=== PATIENT | female | born 1940 | race Caucasian/White ===

== ENCOUNTER → 2018-01-09 | Outpatient (CLI) | payer MEDICARE, MEDICAID ==
[2015-01-01 11:02] VITALS: BMI 32.8
[~2018-01-09] MED LIST: ACY200 PO; ATOR40TA24 PO; Acetaminophen PO; Aspirin PO; CARB15DR72 OP; DOCU-416 PO; ETOD200C26 PO; HYDC1T TOP; HYDR-318 PO; HYDR1TAB PO; LACT1CAP9 PO; LOR1 PO; LORA-1456 PO; MET500 PO; METH-280 PO; MON10 PO; NAPR220C12 PO; OLME5TAB8 PO; OXYC-823 PO; PANT40TA65 PO; PER PO; TRIA63AE TOP
--- NOTE | 2018-01-10 10:25 | RADIOLOGY IMAGING REPORT ---
FACILITY: [facility] [place] PATIENT NAME: VALENTINA JIANG : [id number] MR: [id number] V: [id number] EXAM DATE: [id number] ORDERING PHYSICIAN: GISSEL MASON TECHNOLOGIST: Anna Dunn PROCEDURE:US RIGHT BREAST COMPLETE COMPARISON:None. INDICATIONS:POSSIBLE LUMP 4 O'CLOCK POSITION THE RIGHT BREAST AND RIGHT RETROAREOLAR TENDERNESS. FINDINGS: There is a 3mm cyst in the 12 o'clock position of the Right breast 4cm from the nipple. No other sonographic abnormality was identified throughout the Right breast therefore clinical follow-up is recommended for patient's clinical finding. DIAGNOSTIC CATEGORY 2--BENIGN FINDING. RECOMMENDATIONS: ROUTINE MAMMOGRAM AND CLINICAL EVALUATION. CLINICAL EVALUATION. IMPRESSION: BIRADS 2: Benign finding No mammographic or sonographic abnormalities identified to account for patient's clinical finding therefore clinical finding recommended. Dictated by: Teodora Lobato M.D. on 01/09/2018 at 16:16 Transcribed by: PAOLA on 01/10/2018 at 8:20 Approved by: Teodora Lobato M.D. on 01/10/2018 at 10:23 [facility]
--- NOTE | 2018-01-10 10:25 | RADIOLOGY IMAGING REPORT ---
FACILITY: [facility] PATIENT NAME: VALENTINA JIANG : [id number] MR: [id number] V: [id number] EXAM DATE: [id number] ORDERING PHYSICIAN: GISSEL MASON TECHNOLOGIST: Fatou Urbano PROCEDURE:BILATERAL DIAGNOSTIC DIGITAL MAMMOGRAM WITH CAD ASSISTED INTERPRETATION & 3D TOMOSYNTHESIS COMPARISON:Prior mammograms 08/29/17, 03/01/17, 06/09/15, 05/20/14, 05/04/13. INDICATIONS:POSSIBLE LUMP 4 O'CLOCK POSITION OF THE RIGHT BREAST AND RIGHT RETROAREOLAR TENDERNESS. FINDINGS: Small amount of fibroglandular tissue is seen throughout the breasts. The parenchymal pattern has remained stable allowing for difference in mammographic technique & patient positioning. There is no evidence of malignant appearing mass, malignant appearing calcifications or other secondary sign of malignancy in either breast. Today's Right breast Ultrasound demonstrated a tiny 3mm cyst in the 12 o'clock position of the Right breast. DIAGNOSTIC CATEGORY 2--BENIGN FINDING. RECOMMENDATIONS: ROUTINE MAMMOGRAM AND CLINICAL EVALUATION. CLINICAL EVALUATION. IMPRESSION: BIRADS 2: Benign finding No significant mammographic abnormality identified. A 3mm cyst in the 12 o'clock position of the Right breast was demonstrated sonographically likely accounting for patient's findings. Therefore clincial follow-up recommended. Dictated by: Teodora Lobato M.D. on 01/09/2018 at 16:15 Transcribed by: PAOLA on 01/10/2018 at 8:13 Approved by: Teodora Lobato M.D. on 01/10/2018 at 10:23 [facility]
== END ==
LOC: MAMO 01:01
PROVIDERS: ATTEND Family Medicine
DX: N60.01 Solitary cyst of right breast (principal)
CPT/HCPCS: 77062; 77066

== ENCOUNTER → 2018-07-22 | Outpatient (CLI) | payer MEDICARE, MEDICAID ==
[2015-01-01 11:02] VITALS: BMI 32.8
--- NOTE | 2018-07-22 11:51 | RADIOLOGY IMAGING REPORT ---
FACILITY: [facility] - [place] PATIENT NAME: Juju Sigala : 1940 MR: [id number] V: [id number] EXAM DATE: ORDERING PHYSICIAN: ERIKA TEMPLE TECHNOLOGIST: Location: [facility] [place] Patient: Juju Sigala : 1940 Visit/Account:[id number] Date of Sevice: 07/22/2018 HIP RIGHT History: Right hip pain for many years. Comparison study: None. Findings: There is no fracture involving the pelvis or hip. There are minimal findings of joint spa ce narrowing involving the hips bilaterally; right side greater than left. There are prominent findings of bony erosion and subchondral sclerosis involve the sacroiliac joints bilaterally; right side greater than left. This is likely the cause of the patient's right-sided dagmar n. Entities such as inflammatory bowel disease or seropositive inflammatory arthropathy may be a con sideration. Note there are surgical clips related to bowel surgery in the pelvis and in the region of the rectum. IMPRESSION: 1. In this patient with right hip pain there are mild findings of joint space narrowing involving hi ps bilaterally, but there are prominent findings of bony erosions and subchondral sclerosis involving the right sacroiliac joint. Less prominent findings are noted on the left side in the sacroiliac cassidy int. In this patient with a history of bowel surgery the possibility of inflammatory arthritis relat ed to inflammatory bowel disease is raised. Report Dictated By: Wyatt Dee MD at 07/22/2018 11:44 AM Report E-Signed By: Wyatt Dee MD at 07/22/2018 11:47 AM WSN:JOSE ANGEL
== END ==
LOC: RAD 10:36
PROVIDERS: ATTEND Family Medicine
DX: M85.40 Solitary bone cyst, unspecified site (principal)

== ENCOUNTER 2018-08-06 17:26 | Emergency (ER) | payer MEDICARE, MEDICAID ==
[2015-01-01 11:02] VITALS: Wt 68.0 kg
[~2018-08-06 17:26] MED LIST changes: -DOXY-179 PO; -SCOP1PAT16 TD
--- NOTE | 2018-08-06 17:46 | ER Report ---
History and Physical Time Seen By MD: 17:46 Hx. of Stated Complaint: PATIENT REPORTS THAT SHE HAS HAD INCREASED DIZZINESS SINCE SATURDAY. SHE REPORTS THAT SHE GOT UP TO USE RESTROOM TODAY AROUND 1500 AND WAS VERY UNSTEADY ON HER FEET HPI/ROS CHIEF COMPLAINT: Dizziness HISTORY OF PRESENT ILLNESS: 78-year-old female patient presents to emergency room with complaint of dizziness. Patient states that she had been having some intermittent dizziness over the last couple days. She states it seemed to worsen yesterday afternoon. She states she got up to the bathroom at 3:00 and felt very unsteady. She states she did not fall. She states that she did take some lorazepam which seemed to help. She states she takes that for a facial tic. She states that she's noticed that she tends to have the facial take more when she is dizzy. Patient states that seems to be that she is more dizzy when she is up moving around. She denies any nausea, vomiting or diarrhea. Patient states that she has had some mild episodes like this in the past but nothing more recent. REVIEW OF SYSTEMS: Respiratory: No cough, no dyspnea. Cardiovascular: No chest pain, no palpitations. Gastrointestinal: No vomiting, no abdominal pain. Musculoskeletal: No back pain. Allergies: Coded Allergies: Penicillins (Verified Allergy, Severe, SHEDDING OF SKIN ON HANDS, ARRYTHIMA, 12/22/14) ramipril (Verified Allergy, Intermediate, Coughing, 12/22/14) morphine (Verified Adverse Reaction, Severe, NAUSEA/ VIOLENT VOMITING, 12/22/14) Procaine HCl (Verified Adverse Reaction, Intermediate, DIZZINESS-DISORIENTED, 12/22/14) celecoxib (Verified Adverse Reaction, Intermediate, DIZZINESS, 12/22/14) omeprazole (Verified Adverse Reaction, Intermediate, DIZZINESS, 12/22/14) omeprazole magnesium (Verified Adverse Reaction, Intermediate, DIZZINESS, 12/22/14) sertraline HCl (Verified Adverse Reaction, Intermediate, DIZZINESS, 12/22/14) simvastatin (Verified Adverse Reaction, Intermediate, DIZZINESS, 12/22/14) Home Meds Active Scripts Doxycycline Hyclate (DOXYCYCLINE HYCLATE) 100 Mg Tablet, 100 MG PO BID, #14 TAB Prov:ANNALISE ENGLISH 08/06/18 Scopolamine (Scopolamine) 1 Mg/3 Day Patch.td.3, 1 PATCH TD Q3D PRN for DIZZINESS, #3 PATCH Prov:ANNALISE ENGLISH 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 08/06/18 [Aspirin] 325 MG TAB No Conflict Check, 325 MG PO QDAY, TAB Prov:BRANDIN HIGGINBOTHAM MD 01/05/15 [Acetaminophen] 325 MG TAB No Conflict Check, 650 MG PO Q4H PRN for PAIN, TAB Prov:BRANDIN HIGGINBOTHAM MD 01/05/15 Reported Medications Naproxen Sodium (ALEVE) 220 Mg Capsule, 440 MG PO BID, CAPSULE with food 01/06/15 Hydrocodone/Acetaminophen (Lortab 7.5-325 mg Tablet) 1 Each Tablet, 1-2 TAB PO Q4-6H PRN for PAIN, #100 01/06/15 Oxycodone Hcl (OXYCONTIN) 10 Mg Tab.er.12h, 10 MG PO Q12H for PAIN, #20 01/06/15 Lorazepam (LORAZEPAM) 1 Mg Tab, 1 MG PO PRN for Anxiety, TAB 12/27/14 Lorazepam (ATIVAN) 1 Mg Tablet, 1 MG PO PRN PRN for FACIAL SPASMS 12/22/14 Pantoprazole Sodium (PANTOPRAZOLE SODIUM) 40 Mg Tablet.dr, 40 MG PO QDAY, TAB.SR 02/16/14 Carboxymethylcellulose Sodium (Refresh Tears) 15 Ml Drops, 15 ML OP PRN PRN for DRY EYES AT NIGHT 03/12/13 Metformin Hcl (Glucophage) 500 Mg Tab, 500 MG PO BID 03/12/13 Acyclovir (Zovirax) 200 Mg Cap, 200 MG PO QAM 03/12/13 Atorvastatin Calcium (Lipitor) 40 Mg Tablet, 40 MG PO QAM 03/12/13 Olmesartan Medoxomil 5 MG TAB (Benicar 5 MG TAB) 5 Mg Tablet, 5 MG PO QAM 03/12/13 Past Medical/Surgical History Patient has a past medical history of migraines, CVA, facial spasms, arrhythmia, hypertension, hyperlipidemia, tuberculosis exposure, IBS, reflux, mild incontinence, left wrist fracture, chronic back pain, herpes, type 2 diabetes, skin cancer. Patient has surgical history of tonsillectomy, hammertoe surgery bilaterally, hysterectomy, umbilical hernia repair, appendectomy. Patient has a family medical history of cancer, CAD, diabetes. Reviewed Nurses Notes: Yes Hx Smoking: No Smoking Status: Never Smoker Exposure to Second Hand Smoke?: No Hx Substance Use Disorder: No Hx Alcohol Use: No Constitutional Vital Sign - Last 24 Hours 08/06/18 08/06/18 08/06/18 08/06/18 17:29 17:30 17:41 17:56 Temp 98.5 Pulse 85 86 82 Resp 20 23 15 B/P (MAP) 167/66 167/66 (99) Pulse Ox 92 92 O2 Delivery Room Air 08/06/18 08/06/18 08/06/18 08/06/18 18:00 18:26 18:36 18:41 Pulse 79 80 77 76 82 Resp 27 20 B/P (MAP) 125/108 (114) 140/73 (95) 145/93 (110) 155/105 (122) Pulse Ox 92 08/06/18 08/06/18 08/06/18 18:46 19:16 19:21 Pulse 79 80 84 Resp 20 Pulse Ox 90 94 89 Physical Exam General Appearance: The patient is alert, has no immediate need for airway pro tection and no current signs of toxicity. Respiratory: Chest is non tender, lungs are clear to auscultation. Cardiac: regular rate and rhythm Gastrointestinal: Abdomen is soft and non tender, no masses, bowel sounds normal. Musculoskeletal: Neck: Neck is supple and non tender. Extremities have full range of motion and are non tender. Skin: No rashes or lesions. DIFFERENTIAL DIAGNOSIS: After history and physical exam differential diagnosis was considered for dizziness including but not limited to peripheral and central causes of vertigo, orthostatic causes including dehydration, and blood loss. Medical Decision Making Data Points Result Diagram: 08/06/18 1743 08/06/18 1743 Laboratory Hematology Test 08/06/18 17:43 08/06/18 19:05 Red Blood Count 5.06 M/uL (4.17-5.56) Mean Corpuscular Volume 94.4 fL (80.0-96.0) Mean Corpuscular Hemoglobin 31.6 pg (26.0-33.0) Mean Corpuscular Hemoglobin Concent 33.5 g/dL (32.0-36.0) Red Cell Distribution Width 13.8 % (11.5-14.5) Mean Platelet Volume 8.0 fL (7.2-11.1) Neutrophils (%) (Auto) 68.5 % (39.4-72.5) Lymphocytes (%) (Auto) 19.4 % (17.6-49.6) Monocytes (%) (Auto) 8.9 % (4.1-12.4) Eosinophils (%) (Auto) 2.8 % (0.4-6.7) Basophils (%) (Auto) 0.4 % (0.3-1.4) Nucleated RBC Relative Count (auto) 0.1 /100WBC Neutrophils # (Auto) 5.1 K/uL (2.0-7.4) Lymphocytes # (Auto) 1.4 K/uL (1.3-3.6) Monocytes # (Auto) 0.7 K/uL (0.3-1.0) Eosinophils # (Auto) 0.2 K/uL (0.0-0.5) Basophils # (Auto) 0.0 K/uL (0.0-0.1) Nucleated RBC Absolute Count (auto) 0.01 K/uL Sodium Level 134 mmol/L (137-145) Potassium Level 4.1 mmol/L (3.5-5.0) Chloride Level 97 mmol/L (98-107) Carbon Dioxide Level 29 mmol/L (22-31) Blood Urea Nitrogen 16 mg/dl (7-18) Creatinine 0.90 mg/dl (0.52-1.04) Glomerular Filtration Rate Calc > 60.0 Random Glucose 143 mg/dl (75-110) Calcium Level 9.6 mg/dl (8.4-10.2) Total Bilirubin 0.7 mg/dl (0.2-1.3) Aspartate Amino Transf (AST/SGOT) 39 U/L (0-35) Alanine Aminotransferase (ALT/SGPT) 33 U/L (0-56) Alkaline Phosphatase 96 U/L (0-126) Troponin I < 0.012 ng/ml Total Protein 7.4 g/dl (6.3-8.2) Albumin 4.1 g/dl (3.5-5.0) Urine Color Straw Urine Clarity Clear Urine pH 7.0 pH (4.8-9.5) Urine Specific [place] 1.004 Urine Protein Negative mg/dL (NEGATIVE) Urine Glucose (UA) Negative mg/dL (NEGATIVE) Urine Ketones Negative mg/dL (NEGATIVE) Urine Blood Negative (NEGATIVE) Urine Nitrite Negative (NEGATIVE) Urine Bilirubin Negative (NEGATIVE) Urine Urobilinogen Negative mg/dL (0.2-1.9) Urine Leukocyte Esterase Negative (NEGATIVE) Urine RBC <1 /HPF (0-2/HPF) Urine WBC <1 /HPF (0-5/HPF) Urine Squamous Epithelial Cells Many /LPF (</=FEW) Urine Bacteria Few /HPF (NONE-FEW) Urine Mucus None /HPF (NONE-FEW) Chemistry Test 08/06/18 17:43 08/06/18 19:05 White Blood Count 7.4 k/uL (4.5-11.0) Red Blood Count 5.06 M/uL (4.17-5.56) Hemoglobin 16.0 g/dL (12.0-16.0) Hematocrit 47.7 % (34.0-47.0) Mean Corpuscular Volume 94.4 fL (80.0-96.0) Mean Corpuscular Hemoglobin 31.6 pg (26.0-33.0) Mean Corpuscular Hemoglobin Concent 33.5 g/dL (32.0-36.0) Red Cell Distribution Width 13.8 % (11.5-14.5) Platelet Count 223 K/uL (150-450) Mean Platelet Volume 8.0 fL (7.2-11.1) Neutrophils (%) (Auto) 68.5 % (39.4-72.5) Lymphocytes (%) (Auto) 19.4 % (17.6-49.6) Monocytes (%) (Auto) 8.9 % (4.1-12.4) Eosinophils (%) (Auto) 2.8 % (0.4-6.7) Basophils (%) (Auto) 0.4 % (0.3-1.4) Nucleated RBC Relative Count (auto) 0.1 /100WBC Neutrophils # (Auto) 5.1 K/uL (2.0-7.4) Lymphocytes # (Auto) 1.4 K/uL (1.3-3.6) Monocytes # (Auto) 0.7 K/uL (0.3-1.0) Eosinophils # (Auto) 0.2 K/uL (0.0-0.5) Basophils # (Auto) 0.0 K/uL (0.0-0.1) Nucleated RBC Absolute Count (auto) 0.01 K/uL Glomerular Filtration Rate Calc > 60.0 Calcium Level 9.6 mg/dl (8.4-10.2) Total Bilirubin 0.7 mg/dl (0.2-1.3) Aspartate Amino Transf (AST/SGOT) 39 U/L (0-35) Alanine Aminotransferase (ALT/SGPT) 33 U/L (0-56) Alkaline Phosphatase 96 U/L (0-126) Troponin I < 0.012 ng/ml Total Protein 7.4 g/dl (6.3-8.2) Albumin 4.1 g/dl (3.5-5.0) Urine Color Straw Urine Clarity Clear Urine pH 7.0 pH (4.8-9.5) Urine Specific [place] 1.004 Urine Protein Negative mg/dL (NEGATIVE) Urine Glucose (UA) Negative mg/dL (NEGATIVE) Urine Ketones Negative mg/dL (NEGATIVE) Urine Blood Negative (NEGATIVE) Urine Nitrite Negative (NEGATIVE) Urine Bilirubin Negative (NEGATIVE) Urine Urobilinogen Negative mg/dL (0.2-1.9) Urine Leukocyte Esterase Negative (NEGATIVE) Urine RBC <1 /HPF (0-2/HPF) Urine WBC <1 /HPF (0-5/HPF) Urine Squamous Epithelial Cells Many /LPF (</=FEW) Urine Bacteria Few /HPF (NONE-FEW) Urine Mucus None /HPF (NONE-FEW) Urinalysis Test 08/06/18 19:05 Urine Color Straw Urine Clarity Clear Urine pH 7.0 pH (4.8-9.5) Urine Specific [place] 1.004 Urine Protein Negative mg/dL (NEGATIVE) Urine Glucose (UA) Negative mg/dL (NEGATIVE) Urine Ketones Negative mg/dL (NEGATIVE) Urine Blood Negative (NEGATIVE) Urine Nitrite Negative (NEGATIVE) Urine Bilirubin Negative (NEGATIVE) Urine Urobilinogen Negative mg/dL (0.2-1.9) Urine Leukocyte Esterase Negative (NEGATIVE) Urine RBC <1 /HPF (0-2/HPF) Urine WBC <1 /HPF (0-5/HPF) Urine Squamous Epithelial Cells Many /LPF (</=FEW) Urine Bacteria Few /HPF (NONE-FEW) Urine Mucus None /HPF (NONE-FEW) EKG/Imaging EKG Interpretation 12 lead EKG: Rhythm: Sinus rhythm with occasional PVC, ventricular rate of 85 bpm [place]: normal QRS: normal ST segments: normal Imaging 2 VIEWS CHEST INDICATION: Headache. Facial twitch. COMPARISON: 12/13/2014. FINDINGS: Cardiomediastinal silhouette and pulmonary vessels within normal limits. There is no focal infiltrate or lobar consolidation. There is no pneumothorax or pleural effusion. No nodule. Upper abdomen is unremarkable. No acute bony abnormality. IMPRESSION: 1. No acute cardiopulmonary process. Report Dictated By: Saeid Marie at 08/06/2018 6:29 PM Report E-Signed By: Saeid Marie at 08/06/2018 6:[address] Head without contrast Indication: Headache. Facial twitch. Comparison: None available Technique: Axial CT images were obtained through the brain from the skull base to the vertex without administration of IV contrast. Reformatted coronal and sagittal images were also obtained. One of the following dose optimization techniques was utilized in the performance of this exam: automated exposure control; adjustment of the mA and/or kV according to the patient's size; or use of an iterative reconstruction technique. Specific details can be referenced in the facility's radiology CT exam operational policy. Findings: No evidence of mass, mass effect, or midline shift. No acute intracranial hemorrhage or acute territorial infarction. No extra-axial fluid collection or hydrocephalus. Age-related cerebral atrophy. Periventricular white matter ischemic changes consistent small vessel disease. White/white matter differentiation appears normal. Bony structures show no fractures or lesions. Mucosal thickening seen in the inferior aspect of the right maxillary sinus. The remaining sinuses and mastoids visualized are clear. IMPRESSION: 1. Senescent changes without acute abnormality. 2. Mild right maxillary sinus disease. Report Dictated By: Saeid Marie at 08/06/2018 6:30 PM Report E-Signed By: Saeid Marie at 08/06/2018 6:33 PM ED Course/Re-evaluation ED Course Patient was admitted exam room, history and physical were obtained. Differential diagnoses were considered. On examination lungs are clear, heart was regular, abdomen soft nontender. Patient did have positive Krystina-Hallpike with all directions. IV was started, CBC, CMP, troponin, EKG, chest x-ray, CT scan of the head were done. Patient had normal lab work, including a negative troponin. EKG showed a sinus rhythm with occasional PVC. CT scan of the head did show some mild right maxillary sinus disease. I discussed the findings with the patient. Patient did receive 500 cc bolus of fluid. She also received a scopolamine patch. Patient states she's feeling better at this time. We did get her up and walk around. Patient states she felt markedly improved. We will go ahead and discharge her home this time. We will have her use the scopolamine patch transdermally for the next 3 days, she may take her lorazepam as needed for dizziness. We will also treat her sinusitis with doxycycline. I discussed with patient who verbalized understanding and agreement with plan. Decision to Disposition Date: Aug 06, 2018 Decision to Disposition Time: 19:11 Depart Departure Latest Vital Signs Vital Signs Date Time Temp Pulse Resp B/P (MAP) Pulse Ox O2 Delivery O2 Flow Rate FiO2 08/06/18 19:21 84 89 08/06/18 18:46 20 08/06/18 18:36 140/73 (95) 145/93 (110) 155/105 (122) 08/06/18 17:29 98.5 Room Air Impression: Primary Impression: Vertigo Additional Impression: Sinusitis Condition: Improved Disposition: HOME OR SELF-CARE Referrals: ERIKA TEMPLE DO (PCP) New Scripts Doxycycline Hyclate (DOXYCYCLINE HYCLATE) 100 Mg Tablet 100 MG PO BID, #14 TAB Prov: ANNALISE ENGLISH 08/06/18 Scopolamine (Scopolamine) 1 Mg/3 Day Patch.td.3 1 PATCH TD Q3D PRN for DIZZINESS, #3 PATCH Prov: ANNALISE ENGLISH 08/06/18 Patient Instructions: Vertigo (ED) Additional Instructions: Continue with normal medications. Increase fluid intake. Get plenty of rest. Follow up with your primary care provider in the next 2-5 days. Return to the ER if condition worsens. Leave the patch on for the next 3 days. You may replace it after that if needed. Take your antibiotics as directed.\ Problem Qualifiers Additional Impression: Sinusitis Sinusitis location: maxillary Chronicity: acute Recurrence: non- recurrent Qualified Codes: J01.00 - Acute maxillary sinusitis, unspecified ANNALISE ENGLISH Aug 06, 2018 17:46
[2018-08-06] MEDS ORDERED: NS(*) 0.9% 500 ML BAG 500 ML IV ONE (17:56)
[2018-08-06 18:14] LABS: PLATELET COUNT, AUTOMATED 223 K/uL (150-450)
--- NOTE | 2018-08-06 18:22 | EKG ---
FACILITY: [facility] PATIENT NAME: VALENTINA JIANG : [id number] MR: [id number] V: [id number] EXAM DATE: ORDERING PHYSICIAN: ANNALISE ENGLISH TECHNOLOGIST: Test Reason : dizziness Blood Pressure : / mmHG Vent. Rate : 085 BPM Atrial Rate : 085 BPM P-R Int : 172 ms QRS Dur : 078 ms QT Int : 364 ms P-R-T Axes : 064 025 070 degrees QTc Int : 433 ms Sinus rhythm with occasional premature ventricular complexes Possible Left atrial enlargement Borderline ECG When compared with ECG of 08-APR-2017 11:09, No significant change was found Confirmed by LENORA HIGGINBOTHAM ([id number]) on 08/07/2018 6:12:23 AM Referred By: Confirmed By:LENORA HIGGINBOTHAM
[2018-08-06] MEDS ORDERED: SCOPOLAMINE 1.5 MG PATCH TD ONE (18:25)
--- NOTE | 2018-08-06 18:33 | RADIOLOGY IMAGING REPORT ---
FACILITY: [facility] [place]IENT NAME: Juju Sigala : 1940 MR: [id number] V: [id number] EXAM DATE: ORDERING PHYSICIAN: ANNALISE ENGLISH TECHNOLOGIST: Location: [facility] Patient: Juju Sigala : 1940 Visit/Account:[id number] Date of Sevice: 08/06/2018 2 VIEWS CHEST INDICATION: Headache. Facial twitch. COMPARISON: 12/13/2014. FINDINGS: Cardiomediastinal silhouette and pulmonary vessels within normal limits. There is no focal infiltrate or lobar consolidation. There is no pneumothorax or pleural effusion. No nodule. Upper abdomen is unremarkable. No acute bony abnormality. IMPRESSION: 1. No acute cardiopulmonary process. Report Dictated By: Saeid Marie at 08/06/2018 6:29 PM Report E-Signed By: Saeid Marie at 08/06/2018 6:30 PM WSN:[email or web address]
[2018-08-06 18:36] VITALS: BP 155/105
--- NOTE | 2018-08-06 18:37 | RADIOLOGY IMAGING REPORT ---
FACILITY: [facility] - [place] PATIENT NAME: Juju Sigala : 1940 MR: [id number] V: [id number] EXAM DATE: ORDERING PHYSICIAN: ANNALISE ENGLISH TECHNOLOGIST: Location: [facility] [place] Patient: Juju Sigala : 1940 Visit/Account:[id number] Date of Sevice: 08/06/2018 CT Head without contrast Indication: Headache. Facial twitch. Comparison: None available Technique: Axial CT images were obtained through the brain from the skull base to the vertex without administration of IV contrast. Reformatted coronal and sagittal images were also obtained. One of the following dose optimization techniques was utilized in the performance of this exam: autom ated exposure control; adjustment of the mA and/or kV according to the patient's size; or use of an i terative reconstruction technique. Specific details can be referenced in the facility's radiology CT exam operational policy. Findings: No evidence of mass, mass effect, or midline shift. No acute intracranial hemorrhage or acute territorial infarction. No extra-axial fluid collection or hydrocephalus. Age-related cerebral atrophy. Periventricular whi te matter ischemic changes consistent small vessel disease. White/white matter differentiation appear s normal. Bony structures show no fractures or lesions. Mucosal thickening seen in the inferior aspect of the right maxillary sinus. The remaining sinuses a nd mastoids visualized are clear. IMPRESSION: 1. Senescent changes without acute abnormality. 2. Mild right maxillary sinus disease. Report Dictated By: Saeid Marie at 08/06/2018 6:30 PM Report E-Signed By: Saeid Marie at 08/06/2018 6:33 PM WSN:[email or web address]
[2018-08-06] MEDS ORDERED: SCOP1PAT16 TD (19:08)
[2018-08-06] MEDS ORDERED: DOXY-179 PO (19:11)
== END 2018-08-06 19:31 | disposition home or self-care (01) ==
LOC: ER 18:45
DX: R42 Dizziness and giddiness (principal); J01.00 Acute maxillary sinusitis, unspecified
CPT/HCPCS: 81001; 84484; 85025; 93005; 96360; 99284; A9270; J7040; 70450; 71046; 82040; 82247; 82310; 82374; 82435; 82565; 82947; 84075; 84132; 84155; 84295; 84450; 84460; 84520

== ENCOUNTER → 2018-08-06 | Outpatient (CLI) | payer MEDICARE, MEDICAID ==
[2015-01-01 11:02] VITALS: BMI 32.8
[~2018-08-06] MED LIST changes: +DOXY-179 PO; +SCOP1PAT16 TD
== END ==
LOC: AMB 17:03
PROVIDERS: ATTEND Nurse Practitioner
DX: R53.1 Weakness (principal); R42 Dizziness and giddiness; R11.0 Nausea; E10.8 Type 1 diabetes mellitus with unspecified complications
CPT/HCPCS: A0425; A0429

== ENCOUNTER 2018-08-15 09:00 | Outpatient (RCR) | payer MEDICARE, MEDICAID ==
[2015-01-01 11:02] VITALS: BMI 32.8
--- NOTE | 2018-08-01 15:19 | PT INITIAL EVALUATION ---
MEDICAL DIAGNOSIS: M46.1 Sacroiliitis TREATMENT DIAGNOSIS: Same DATE OF ONSET: 06/28/18 SUBJECTIVE: Juju Sigala presents to PT for intermittent R SI pain that flared last month. X-ray is positive for R SI OA, while R hip x-ray is unremarkable. Juju would like to walk farther and exercise with minimal SI pain. When she exercises, R SI pain is 8/10.. . Pain location is R SI to lateral hip and described as ache, sharp grab. Pain scale is 1 on a ten point pain scale, 8/10 with exercise. Pain is worse with exercising and better with rest. REHAB PROBLEM LIST: Increased Pain Decreased ROM Decreased Strength Decreased Function Decreased Mobility Decreased Gait PREVIOUS MEDICAL HISTORY: Severe concussions, IBS, lumbar OA OCCUPATION: Retired, lives in single level apartment. OBJECTIVE: Posture: R anterior and L posterior ilium, lower L thoracic convex scoliosis. ROM: AROM lumbar spine 75% flexion, minimal extension. Hip PROM B WNL, with R ER at 90 degrees painful in the R hip. SI AROM WNL, R stiff motion. Strength: LE's 4+ to 5-/5 B. Core strength 3-/5. Palpation: Painful R SI posterior ligaments, g. medius. Special Tests: Negative SLR, B, hip scour. DIYA R 75%, L 50%. Gait: Apparent long R LE. ASSESSMENT: Juju Sigala presents with SI and lumbar stiffness, pain affecting ambulation and exercise. She's started on HEP for evening pelvis and core strengthening. Short Term Goals 4 weeks: Juju ambulates 1-2 blocks with R SI pain 2/10. 6 weeks: Juju ambulates 3 blocks with R SI pain 1-2/10. Patient's Goals Walk more, less SI pain. PLAN: Patient to be seen for Manual Therapy Strengthening/condition Range of Motion Spinal Stabilization Stretching Posture/Body mechanics Gait Trg/Balance Trg Home Exercise Program 2x/Week for 6 Weeks Thank you for this referral. If you have any questions, comments, or concerns about this report or plan, please contact me at . [facility]
[~2018-08-15 09:00] MED LIST changes: +DOXY-179 PO; +SCOP1PAT16 TD
--- NOTE | 2018-08-15 09:50 | PT PLAN OF CARE ---
Physician: Dr. Enrrique Taylor Patient is being seen: 2x/week Therapist: Annika Wong, [place] Medical Diagnosis: M46.1 Sacroiliitis Treatment Diagnosis: Same Date of Onset: 06/28/18 Date of Initial Evaluation: 08/01/18 Date patient was last seen: 08/15/18 Number of treatments: 4 Number of cancellations/No shows: 0 INTERVENTIONS: SI strengthening HEP, Neuro re-ed. GOALS: 4 weeks: Juju ambulates 1-2 blocks with R SI pain 2/10. not met 6 weeks: Juju ambulates 3 blocks with R SI pain 1-2/10. not met PATIENT'S GOAL: Walk more (not met), less SI pain (met). Patient Compliance: Excellent Prognosis: Excellent Reasons for discontinuing therapy: S: Juju has a severe case of dizziness and sometimes vertigo. She relates her R SI joint hurts less. OLYA 31% O: L hallpike with two beats nystagmus at 20 seconds. L Ady's maneuver resolves nystagmus but dizziness continues, just as severe as before maneuver. PSIS' are even. Rollator gait due to dizziness. A/P: Juju is more troubled with her vertigo and dizziness than SI pain. She had head CT and EKG at our ED. She'll see Dr. Taylor today about this dizziness. I'll DC SI PT as she's more impaired with dizziness than SI pain. Thank you. ROBERT
== END 2018-08-15 18:00 | disposition home or self-care (01) ==
LOC: PT 09:00
PROVIDERS: ATTEND Family Medicine
DX: M25.551 Pain in right hip (principal); M46.1 Sacroiliitis, not elsewhere classified; M16.11 Unilateral primary osteoarthritis, right hip
CPT/HCPCS: 97162

== ENCOUNTER 2018-08-17 19:04 | Emergency (ER) | payer MEDICARE, MEDICAID ==
[2015-01-01 11:02] VITALS: Wt 68.0 kg
[2018-08-17 19:05] VITALS: BP 138/65
--- NOTE | 2018-08-17 19:12 | ER Report ---
History and Physical Time Seen By MD: 19:11 Hx. of Stated Complaint: DIZZY, VERTIGO, TREMORS ORTHO STATICS DONE BY EMS, NO CHANGES IN VITALS TOOK LORAZAPAM AT 1815 HPI/ROS CHIEF COMPLAINT: Vertigo HISTORY OF PRESENT ILLNESS: 78-year-old female brought in by EMS from home after a severe bout of vertigo. Patient has a history of vertigo, extending back to weeks. She was seen here in the ER on 08/06/19. That time she had an extensive evaluation including a head CT, which was unremarkable except for some right maxillary sinusitis. She was discharged home on scopolamine and doxycycline. She did finish the doxycycline. She is still wearing this [place] patches. 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 She takes lorazepam as needed. [facility] Despite this she continued to have some twitching of her face and also twitching of her left upper and lower extremities. This concerned her granddaughter who she staying with. She called 911. Patient was also seen by her primary care physician on Saturday. Dr. Basilio who was going to order an MRI. Patient notes no visual changes, no speech changes. She normally ambulates with a walker and she's been feeling very unsteady. The vertigo has persisted. Patient states zuly's bout of vertigo was more severe than her previous bouts but similar to the episode she had back on 08/06/18. Patient arrives with a low-grade fever 99.5. Paramedics performed orthostatics at home and report that they are unremarkable. Patient denies chest pain or shortness of breath. She denies nausea or vomiting. Patient was also seen by PT and had [facility] [place] [facility] maneuver performed. She reports this did not help her vertigo. REVIEW OF SYSTEMS: Respiratory: No cough, no dyspnea. Cardiovascular: No chest pain, no palpitations. Gastrointestinal: No vomiting, no abdominal pain. Musculoskeletal: No back pain. Allergies: Coded Allergies: Penicillins (Verified Allergy, Severe, SHEDDING OF SKIN ON HANDS, ARRYTHIMA, 08/17/18) ramipril (Verified Allergy, Intermediate, Coughing, 08/17/18) morphine (Verified Adverse Reaction, Severe, NAUSEA/ VIOLENT VOMITING, 08/17/18) Procaine HCl (Verified Adverse Reaction, Intermediate, DIZZINESS- DISORIENTED, 08/17/18) celecoxib (Verified Adverse Reaction, Intermediate, DIZZINESS, 08/17/18) omeprazole (Verified Adverse Reaction, Intermediate, DIZZINESS, 08/17/18) omeprazole magnesium (Verified Adverse Reaction, Intermediate, DIZZINESS, 08/17/18) sertraline HCl (Verified Adverse Reaction, Intermediate, DIZZINESS, 08/17) simvastatin (Verified Adverse Reaction, Intermediate, DIZZINESS, 08/17/18) Home Meds Active Scripts Doxycycline Hyclate (DOXYCYCLINE HYCLATE) 100 Mg Tablet, 100 MG PO BID, #14 TAB Prov:ANNALISE ENGLISH 08/06/18 Scopolamine (Scopolamine) 1 Mg/3 Day Patch.td.3, 1 PATCH TD Q3D PRN for DIZZINESS, #3 PATCH Prov:ANNALISE ENGLISH 08/06/18 [Aspirin] 325 MG TAB No Conflict Check, 325 MG PO QDAY, TAB Prov:BRANDIN HIGGINBOTHAM MD 01/05/15 [Acetaminophen] 325 MG TAB No Conflict Check, 650 MG PO Q4H PRN for PAIN, TAB Prov:BRANDIN HIGGINBOTHAM MD 01/05/15 Reported Medications Naproxen Sodium (ALEVE) 220 Mg Capsule, 440 MG PO BID, CAPSULE with food 01/06/15 Hydrocodone/Acetaminophen (Lortab 7.5-325 mg Tablet) 1 Each Tablet, 1-2 TAB PO Q4-6H PRN for PAIN, #100 01/06/15 Oxycodone Hcl (OXYCONTIN) 10 Mg Tab.er.12h, 10 MG PO Q12H for PAIN, #20 01/06/15 Lorazepam (LORAZEPAM) 1 Mg Tab, 1 MG PO PRN for Anxiety, TAB 12/27/14 Lorazepam (ATIVAN) 1 Mg Tablet, 1 MG PO PRN PRN for FACIAL SPASMS 12/22/14 Pantoprazole Sodium (PANTOPRAZOLE SODIUM) 40 Mg Tablet.dr, 40 MG PO QDAY, TAB.SR 02/16/14 Carboxymethylcellulose Sodium (Refresh Tears) 15 Ml Drops, 15 ML OP PRN PRN for DRY EYES AT NIGHT 03/12/13 Metformin Hcl (Glucophage) 500 Mg Tab, 500 MG PO BID 03/12/13 Acyclovir (Zovirax) 200 Mg Cap, 200 MG PO QAM 03/12/13 Atorvastatin Calcium (Lipitor) 40 Mg Tablet, 40 MG PO QAM 03/12/13 Olmesartan Medoxomil 5 MG TAB (Benicar 5 MG TAB) 5 Mg Tablet, 5 MG PO QAM 03/12/13 Past Medical/Surgical History Patient has a past medical history of migraines, CVA, facial spasms, arrhythmia, hypertension, hyperlipidemia, tuberculosis exposure, IBS, reflux, mild incontinence, left wrist fracture, chronic back pain, herpes, type 2 diabetes, skin cancer. Patient has surgical history of tonsillectomy, hammertoe surgery bilaterally, hysterectomy, umbilical hernia repair, appendectomy. Patient has a family medical history of cancer, CAD, diabetes. Reviewed Nurses Notes: Yes Old Medical Records Reviewed: Yes Hx Smoking: No Smoking Status: Never Smoker Exposure to Second Hand Smoke?: No Hx Substance Use Disorder: No Hx Alcohol Use: No Constitutional Vital Sign - Last 24 Hours 08/17/18 19:05 Temp 99.5 Pulse 86 Resp 16 B/P (MAP) 138/65 Pulse Ox 92 O2 Delivery Room Air Physical Exam Vital signs stable, temp 99.5, pulse ox normal General Appearance: The patient is alert, has no immediate need for airway protection and no signs of toxicity. Alert and oriented 3, no acute distress, in good spirits HEENT: Pupils equal and round no pallor or injection. TMs normal, oropharynx without redness or exudate, mucous. Membranes are moist Respiratory: There are no retractions, lungs are clear to auscultation. Cardiovascular: Regular rate and rhythm., No murmur Gastrointestinal: Abdomen is soft and non tender, no masses, bowel sounds norm al. Neurological: Alert and oriented 3, cranial nerves II through XII intact motor 5/5 boy's adviser, sensory intact to light touch 4, involuntary myoclonic twitching noted of the left lower and upper extremity as well as a tick of the left face. This is chronic, but occurs more frequently than on previous occasions. Skin: Warm and dry, no rashes. Musculoskeletal: Neck is supple non tender. Extremities are nontender, nonswollen and have full range of motion. DIFFERENTIAL DIAGNOSIS: After history and physical exam differential diagnosis was considered for dizziness including but not limited to peripheral and central causes of vertigo, orthostatic causes including dehydration, and blood loss. Medical Decision Making Data Points Result Diagram: 08/17/18194708/[id number] Laboratory Hematology Test 08/17/18 19:48 08/17/18 21:00 Red Blood Count 4.65 M/uL (4.17-5.56) Mean Corpuscular Volume 94.2 fL (80.0-96.0) Mean Corpuscular Hemoglobin 32.0 pg (26.0-33.0) Mean Corpuscular Hemoglobin Concent 33.9 g/dL (32.0-36.0) Red Cell Distribution Width 13.5 % (11.5-14.5) Mean Platelet Volume 7.9 fL (7.2-11.1) Neutrophils (%) (Auto) 67.4 % (39.4-72.5) Lymphocytes (%) (Auto) 18.8 % (17.6-49.6) Monocytes (%) (Auto) 9.5 % (4.1-12.4) Eosinophils (%) (Auto) 3.4 % (0.4-6.7) Basophils (%) (Auto) 0.9 % (0.3-1.4) Nucleated RBC Relative Count (auto) 0.1 /100WBC Neutrophils # (Auto) 5.3 K/uL (2.0-7.4) Lymphocytes # (Auto) 1.5 K/uL (1.3-3.6) Monocytes # (Auto) 0.8 K/uL (0.3-1.0) Eosinophils # (Auto) 0.3 K/uL (0.0-0.5) Basophils # (Auto) 0.1 K/uL (0.0-0.1) Nucleated RBC Absolute Count (auto) 0.01 K/uL Sodium Level 137 mmol/L (137-145) Potassium Level 4.5 mmol/L (3.5-5.0) Chloride Level 102 mmol/L (98-107) Carbon Dioxide Level 25 mmol/L (22-31) Blood Urea Nitrogen 19 mg/dl (7-18) Creatinine 1.00 mg/dl (0.52-1.04) Glomerular Filtration Rate Calc 53.3 Random Glucose 173 mg/dl (75-110) Lactate 1.7 mmol/L (0.7-2.1) Calcium Level 9.2 mg/dl (8.4-10.2) Total Bilirubin 0.8 mg/dl (0.2-1.3) Aspartate Amino Transf (AST/SGOT) 27 U/L (0-35) Alanine Aminotransferase (ALT/SGPT) 31 U/L (0-56) Alkaline Phosphatase 84 U/L (0-126) Troponin I < 0.012 ng/ml Total Protein 6.7 g/dl (6.3-8.2) Albumin 3.7 g/dl (3.5-5.0) Urine Color Yellow Urine Clarity Clear Urine pH 5.0 pH (4.8-9.5) Urine Specific Delta 1.012 Urine Protein Negative mg/dL (NEGATIVE) Urine Glucose (UA) Negative mg/dL (NEGATIVE) Urine Ketones Negative mg/dL (NEGATIVE) Urine Blood Negative (NEGATIVE) Urine Nitrite Negative (NEGATIVE) Urine Bilirubin Negative (NEGATIVE) Urine Urobilinogen Negative mg/dL (0.2-1.9) Urine Leukocyte Esterase Negative (NEGATIVE) Urine RBC 1 /HPF (0-2/HPF) Urine WBC 2 /HPF (0-5/HPF) Urine Squamous Epithelial Cells Many /LPF (</=FEW) Urine Bacteria Few /HPF (NONE-FEW) Urine Mucus None /HPF (NONE-FEW) Chemistry Test 08/17/18 19:48 08/17/18 21:00 White Blood Count 7.9 k/uL (4.5-11.0) Red Blood Count 4.65 M/uL (4.17-5.56) Hemoglobin 14.9 g/dL (12.0-16.0) Hematocrit 43.8 % (34.0-47.0) Mean Corpuscular Volume 94.2 fL (80.0-96.0) Mean Corpuscular Hemoglobin 32.0 pg (26.0-33.0) Mean Corpuscular Hemoglobin Concent 33.9 g/dL (32.0-36.0) Red Cell Distribution Width 13.5 % (11.5-14.5) Platelet Count 222 K/uL (150-450) Mean Platelet Volume 7.9 fL (7.2-11.1) Neutrophils (%) (Auto) 67.4 % (39.4-72.5) Lymphocytes (%) (Auto) 18.8 % (17.6-49.6) Monocytes (%) (Auto) 9.5 % (4.1-12.4) Eosinophils (%) (Auto) 3.4 % (0.4-6.7) Basophils (%) (Auto) 0.9 % (0.3-1.4) Nucleated RBC Relative Count (auto) 0.1 /100WBC Neutrophils # (Auto) 5.3 K/uL (2.0-7.4) Lymphocytes # (Auto) 1.5 K/uL (1.3-3.6) Monocytes # (Auto) 0.8 K/uL (0.3-1.0) Eosinophils # (Auto) 0.3 K/uL (0.0-0.5) Basophils # (Auto) 0.1 K/uL (0.0-0.1) Nucleated RBC Absolute Count (auto) 0.01 K/uL Glomerular Filtration Rate Calc 53.3 Lactate 1.7 mmol/L (0.7-2.1) Calcium Level 9.2 mg/dl (8.4-10.2) Total Bilirubin 0.8 mg/dl (0.2-1.3) Aspartate Amino Transf (AST/SGOT) 27 U/L (0-35) Alanine Aminotransferase (ALT/SGPT) 31 U/L (0-56) Alkaline Phosphatase 84 U/L (0-126) Troponin I < 0.012 ng/ml Total Protein 6.7 g/dl (6.3-8.2) Albumin 3.7 g/dl (3.5-5.0) Urine Color Yellow Urine Clarity Clear Urine pH 5.0 pH (4.8-9.5) Urine Specific Delta 1.012 Urine Protein Negative mg/dL (NEGATIVE) Urine Glucose (UA) Negative mg/dL (NEGATIVE) Urine Ketones Negative mg/dL (NEGATIVE) Urine Blood Negative (NEGATIVE) Urine Nitrite Negative (NEGATIVE) Urine Bilirubin Negative (NEGATIVE) Urine Urobilinogen Negative mg/dL (0.2-1.9) Urine Leukocyte Esterase Negative (NEGATIVE) Urine RBC 1 /HPF (0-2/HPF) Urine WBC 2 /HPF (0-5/HPF) Urine Squamous Epithelial Cells Many /LPF (</=FEW) Urine Bacteria Few /HPF (NONE-FEW) Urine Mucus None /HPF (NONE-FEW) Urinalysis Test 08/17/18 21:00 Urine Color Yellow Urine Clarity Clear Urine pH 5.0 pH (4.8-9.5) Urine Specific Delta 1.012 Urine Protein Negative mg/dL (NEGATIVE) Urine Glucose (UA) Negative mg/dL (NEGATIVE) Urine Ketones Negative mg/dL (NEGATIVE) Urine Blood Negative (NEGATIVE) Urine Nitrite Negative (NEGATIVE) Urine Bilirubin Negative (NEGATIVE) Urine Urobilinogen Negative mg/dL (0.2-1.9) Urine Leukocyte Esterase Negative (NEGATIVE) Urine RBC 1 /HPF (0-2/HPF) Urine WBC 2 /HPF (0-5/HPF) Urine Squamous Epithelial Cells Many /LPF (</=FEW) Urine Bacteria Few /HPF (NONE-FEW) Urine Mucus None /HPF (NONE-FEW) EKG/Imaging EKG Interpretation 12 lead EK Rhythm: normal sinus rhythm at 82 bpm with occasional premature ventricular complexes or fusion beats [place]: normal QRS: normal ST segments: normal, compared to previous EKG dated 08/06/18, no significant morphologic change Imaging X-ray: Single view portable chest x-ray was obtained. I viewed the images myself on the PACS system. My interpretation of the images is: No infiltrate, no effusions, normal mediastinum, comparison to previous chest x-ray 08/06/18 significant change. The radiologist interpretation had no clinically significant variation from this interpretation. Results: MRI of the brain without contrast was obtained. The results of the study are MRI of the brain without contrast: Indication: Persistent vertigo and left sided tremor. Technique: MRI was performed without contrast utilizing multiple axial, coronal, and sagittal T1-weighted, T2-weighted, FLAIR, gradient echo, and diffusion- weighted sequences. Comparison: Noncontrast CT of the head dated 06/06/2018. Findings: There is no evidence of intra-axial or extra-axial hemorrhage. No extra-axial mass or fluid collection is identified. No structural deformities are clearly identified in the posterior fossa or cerebellopontine angles. There is mild diffuse cerebral cortical atrophy. Multiple small foci of white matter hyperintensity are present in the bilateral cerebral cortices, most likely related to chronic microvascular disease. There is no evidence of restricted diffusion to suggest the presence of acute ischemia. The size, shape, and configuration of the ventricular structures are normal. There is no evidence of mass, edema, or midline shift. The skeletal and soft tissue structures are unremarkable, as visualized. There is persistent mucosal thickening in the right maxillary sinus. The paranasal sinuses and mastoid air cells are otherwise clear. Impression: No evidence of hemorrhage, mass, edema, or acute ischemia. The study was read by the radiologist. I viewed the images myself on the PACS system. ED Course/Re-evaluation Clinical Indication for ER IV: IV Access ED Course Patient was admitted to an examination room. H&P was done. The differential diagnoses was considered. On clinical examination. Patient has tremor in a facial tic on the left side. Her granddaughter was concerned about this and called the ambulance to bring her in. Patient also had a severe bout of vertigo. Patient was evaluated with an MRI of her brain which her primary care doctor. He really had told her he was going to order. I called the radiology department and no study had been ordered. Patient was treated with the diagnostic evaluation of additional blood work, EKG to evaluate for other sources of vertigo. None were apparent. Patient is still taking scopolamine patches to control her dizziness. Patient was informed of her normal MRI results. She is advised to follow-up with Dr. Gill for further evaluation and treatment. Likely referral to neurology would be appropriate. Decision to Disposition Date: Aug 17, 2018 Decision to Disposition Time: 21:48 Depart Departure Latest Vital Signs Vital Signs Date Time Temp Pulse Resp B/P (MAP) Pulse Ox O2 Delivery O2 Flow Rate FiO2 08/17/18 19:05 99.5 86 16 138/65 92 Room Air Impression: Primary Impression: Tremor Additional Impression: Vertigo Condition: Improved Disposition: HOME OR SELF-CARE Referrals: ERIKA TEMPLE DO (PCP) Patient Instructions: Vertigo (DC) Additional Instructions: Follow-up with your primary care early next week. Dr. Temple Problem Qualifiers ROSANNA BAUTISTA DO Aug 17, 2018 19:12
--- NOTE | 2018-08-17 19:44 | EKG ---
FACILITY: [facility] PATIENT NAME: VALENTINA JIANG : [id number] MR: [id number] V: [id number] EXAM DATE: ORDERING PHYSICIAN: ROSANNA BAUTISTA TECHNOLOGIST: NOVA Test Reason : DIZZINESS Blood Pressure : / mmHG Vent. Rate : 082 BPM Atrial Rate : 082 BPM P-R Int : 156 ms QRS Dur : 070 ms QT Int : 354 ms P-R-T Axes : 055 019 079 degrees QTc Int : 413 ms Sinus rhythm with premature ventricular complexes ST abnormality Abnormal ECG When compared with ECG of 06-AUG-2018 17:38, No significant change was found Confirmed by Raul Booker ([id number]) on 08/17/2018 9:05:18 PM Referred By: Confirmed By:Raul Ferrell
[2018-08-17 20:01] LABS: PLATELET COUNT, AUTOMATED 222 K/uL (150-450)
--- NOTE | 2018-08-17 20:43 | RADIOLOGY IMAGING REPORT ---
[place] [facility] [place] NAME: Juju Sigala : 1940 MR: [id number] V: [id number] EXAM DATE: ORDERING PHYSICIAN: ROSANNA BAUTISTA TECHNOLOGIST: Location: [facility] Patient: Juju Sigala : 1940 Visit/Account:[id number] Date of Sevice: 08/17/2018 Examination: CHEST SINGLE AP Comparison: 08/06/2018 and earlier. History: Fever. Vertigo. Findings: Cardiac and hilar contour size is within normal limits. No consolidation, nodule, or perib ronchial inflammation. No pneumothorax, edema, or effusion. Osseous structures are intact. IMPRESSION: No evidence of acute cardiopulmonary disease. Report Dictated By: Tl Cruz MD at 08/17/2018 8:39 PM Report E-Signed By: Tl Cruz MD at 08/17/2018 8:40 PM WSN:[id number]
--- NOTE | 2018-08-17 21:30 | RADIOLOGY IMAGING REPORT ---
FACILITY: [facility] PATIENT NAME: Juju Sigala : 1940 MR: [id number] V: [id number] EXAM DATE: ORDERING PHYSICIAN: ROSANNA BAUTISTA TECHNOLOGIST: Location: [facility] Patient: Juju Sigala : 1940 Visit/Account:[id number] Date of Sevice: 08/17/2018 MRI of the brain without contrast: Indication: Persistent vertigo and left sided tremor. Technique: MRI was performed without contrast utilizing multiple axial, coronal, and sagittal T1-weig hted, T2-weighted, FLAIR, gradient echo, and diffusion-weighted sequences. Comparison: Noncontrast CT of the head dated 06/06/2018. Findings: There is no evidence of intra-axial or extra-axial hemorrhage. No extra-axial mass or fluid collection is identified. No structural deformities are clearly identified in the posterior fossa or cerebellopontine angles. There is mild diffuse cerebral cortical atrophy. Multiple small foci of white matter hyperintensity a re present in the bilateral cerebral cortices, most likely related to chronic microvascular disease. There is no evidence of restricted diffusion to suggest the presence of acute ischemia. The size, sha pe, and configuration of the ventricular structures are normal. There is no evidence of mass, edema, or midline shift. The skeletal and soft tissue structures are unremarkable, as visualized. There is persistent mucosal thickening in the right maxillary sinus. The paranasal sinuses and mastoid air cells are otherwise cl ear. Impression: No evidence of hemorrhage, mass, edema, or acute ischemia. Report Dictated By: Og Fernandes MD at 08/17/2018 9:09 PM Report E-Signed By: Og Fernandes MD at 08/17/2018 9:25 PM WSN:[id number]
== END 2018-08-17 21:55 | disposition home or self-care (01) ==
LOC: ER 19:13
DX: R25.1 Tremor, unspecified (principal); R42 Dizziness and giddiness
CPT/HCPCS: 36415; 70551; 71045; 81001; 82040; 82247; 82310; 82374; 82435; 82565; 82947; 83605; 84075; 84132; 84155; 84295; 84450; 84460; 84484; 84520; 85025; 93005; 99284

== ENCOUNTER → 2018-08-17 | Outpatient (CLI) | payer MEDICARE, MEDICAID ==
[2015-01-01 11:02] VITALS: BMI 32.8
== END ==
LOC: AMB 18:38
PROVIDERS: ATTEND Nurse Practitioner
DX: R42 Dizziness and giddiness (principal); R25.1 Tremor, unspecified
CPT/HCPCS: A0425; A0427

== ENCOUNTER 2018-12-26 02:01 | Day surgery (SDC) | payer MEDICARE, MEDICAID ==
[2015-01-01 11:02] VITALS: Ht 152.4 cm; Wt 72.6 kg
[~2018-12-26] VITALS: Ht 152.4 cm; Wt 72.6 kg
[~2018-12-26 02:01] MED LIST changes: +CHOL10005 PO; +CLIN-60 PO; +MULT1CAP59 PO; +SITA100T PO
[2018-12-26 11:03] VITALS: BP 130/74
[2018-12-26] MEDS ORDERED: OPHTHALMIC PROCEDURE 2 OD PRN ×2 (11:30)
[2018-12-26] MEDS ORDERED: NORMOSOL R SOLN(*) 1000 ML BAG 1,000 ML IV PRN (11:30)
[2018-12-26] MEDS ORDERED: LIDOCAINE/SOD BICARB 8.4% SYR ID ONE (11:30)
[2018-12-26] MEDS ORDERED: OPHTHALMIC PROCEDURE 1 OD PRN (11:30)
[2018-12-26] MEDS ORDERED: acetaZOLAMIDE 500 MG CAPCR PO ONE (11:30)
[2018-12-26 12:55] VITALS: BP 145/84
--- NOTE | 2018-12-26 17:20 | FOSTER RIGHT EYE CATARACT ---
EVENT DATE: December 26, 2018 SURGEON: Jesus Power MD ANESTHESIOLOGIST: Derrick Zavaleta MD ANESTHESIA: MAC PREOPERATIVE DIAGNOSIS Cataract, right eye. POSTOPERATIVE DIAGNOSIS Cataract, right eye. PROCEDURE Phacoemulsification of cataractous lens with implantation of an intraocular lens, right eye. DESCRIPTION OF PROCEDURE The risks, benefits, and alternatives were carefully discussed with the patient, and preoperative consent was obtained. The patient was brought to the operating room after receiving topical anesthetic. The patient was prepped and draped using sterile technique in the usual manner. A stab incision was made, and the chamber was inflated with preservative-free lidocaine. DuoVisc was injected to inflate the chamber. A 2.2 mm blade was used to enter the anterior chamber. Utrata forceps were used to tear a circular capsulorrhexis. BSS was used to hydrodissect the nucleus. Phaco tip was introduced, and the nucleus was chopped into four quadrants. Each quadrant was removed. The I/A tip was used to remove the cortex. The bag was inflated with ProVisc. The intraocular lens was injected into the capsular bag. The I/A tip was used to remove the ProVisc. The wound was found to be watertight. Vigamox, Nevanac, and Maxitrol ointment were placed in the patient's eye. The patient's eye was patched, and the patient was taken to the recovery room in stable condition. The patient was examined in the recovery room and found to be stable prior to release from the hospital. ROBERT
== END 2018-12-26 13:15 | disposition home or self-care (01) ==
LOC: OR 02:01
PROVIDERS: ATTEND Ophthalmology
DX: H25.11 Age-related nuclear cataract, right eye (principal)
CPT/HCPCS: 36416; 66984; 82948; A9270; V2632

== ENCOUNTER → 2019-03-20 | Outpatient (CLI) | payer MEDICARE, MEDICAID ==
[2015-01-01 11:02] VITALS: BMI 32.8
--- NOTE | 2019-03-25 09:40 | RADIOLOGY IMAGING REPORT ---
FACILITY: [facility] PATIENT NAME: VALENTINA JIANG : [id number] MR: [id number] V: [id number] EXAM DATE: ORDERING PHYSICIAN: ERIKA TEMPLE TECHNOLOGIST: Fatou Urbano PROCEDURE: BILATERAL DIGITAL SCREENING MAMMOGRAM WITH CAD ASSISTED INTERPRETATION & 3D TOMOSYNTHESIS REASON FOR STUDY: Screening FAMILY HISTORY OF BREAST CANCER: Sisters & daughter BREAST PROCEDURES/TREATMENTS: Benign surgical biopsy Right & Left breast COMPARISON: 12/30/17, 08/29/17, 03/01/17, 06/09/15, 05/20/14 VIEWS OBTAINED: Bilateral 2D & 3D full field CC & MLO BREAST DENSITY: There are scattered areas of fibroglandular density seen throughout the breasts. MAMMOGRAM FINDINGS: The parenchymal pattern has remained stable allowing for difference in mammographic technique & patient positioning. IMPRESSION: BIRADS 1: Negative. DIAGNOSTIC CATEGORY 1--NEGATIVE. RECOMMENDATIONS: ROUTINE MAMMOGRAM AND CLINICAL EVALUATION. Dictated by: Teodora Lobato M.D. on 03/24/2019 at 12:50 Transcribed by: ALICE on 03/24/2019 at 13:30 Approved by: Teodora Lobato M.D. on 03/25/2019 at 9:39 [facility]
== END ==
LOC: MAMO 01:20
PROVIDERS: ATTEND Family Medicine
DX: Z12.31 Encounter for screening mammogram for malignant neoplasm of breast (principal); Z80.3 Family history of malignant neoplasm of breast
CPT/HCPCS: 77063; 77067

== ENCOUNTER 2019-05-15 01:00 | Day surgery (SDC) | payer MEDICARE, MEDICAID ==
[2015-01-01 11:02] VITALS: Ht 152.4 cm; Wt 71.7 kg
[~2019-05-15] VITALS: Ht 152.4 cm; Wt 71.7 kg
[2019-05-15] MEDS ORDERED: OPHTHALMIC PROCEDURE 1 OS PRN (06:00)
[2019-05-15] MEDS ORDERED: acetaZOLAMIDE 500 MG CAPCR PO ONE (06:00)
[2019-05-15] MEDS ORDERED: OPHTHALMIC PROCEDURE 2 OS PRN (06:00)
[2019-05-15 11:06] VITALS: BP 131/81
[2019-05-15] MEDS ORDERED: LIDOCAINE/SOD BICARB 8.4% SYR ID ONE (11:30)
[2019-05-15] MEDS ORDERED: NORMOSOL R SOLN(*) 1000 ML BAG 1,000 ML IV PRN (11:30)
[2019-05-15] MEDS: OPHTHALMIC PROCEDURE 2 OS PRN ×2 (11:39→11:48)
[2019-05-15 13:56] VITALS: BP 160/77
--- NOTE | 2019-05-16 08:28 | OPERATIVE REPORT 1 ---
EVENT DATE: May 15, 2019 SURGEON: Jesus Power MD ANESTHESIOLOGIST: Rob Park MD ANESTHESIA: MAC. PREOPERATIVE DIAGNOSIS Cataract, left eye. POSTOPERATIVE DIAGNOSIS Cataract, left eye. PROCEDURE Phacoemulsification of cataractous lens with implantation of an intraocular lens, left eye. DESCRIPTION OF PROCEDURE The risks and benefits and alternatives were carefully discussed with the patient, and preoperative consent was obtained. The patient was brought to the operating room, after receiving topical anesthetic. The patient was prepped and draped using sterile technique in the usual manner. A stab incision was made and the chamber was inflated with preservative-free lidocaine. DuoVisc was injected to inflate the chamber. A 2.2 mm blade was used to enter the anterior chamber. Utrata forceps were used to tear a circular capsulorrhexis. BSS was used to hydrodissect the nucleus. Phaco tip was introduced and the nucleus was chopped into four quadrants. Each quadrant was removed. The I/A tip was used to remove the cortex. The bag was inflated with ProVisc. The intraocular lens was injected into the capsular bag. The I/A tip was used to remove the ProVisc. The wound was found to be watertight. Vigamox, Nevanac and Maxitrol ointment were placed in the patient's eye. The patient's eye was patched and the patient was taken to the recovery room in stable condition. The patient was examined in the recovery room and found to be stable, prior to release from the hospital. ROBERT
== END 2019-05-15 14:09 | disposition home or self-care (01) ==
LOC: OR 01:00
PROVIDERS: ATTEND Ophthalmology
DX: H25.12 Age-related nuclear cataract, left eye (principal); E11.9 Type 2 diabetes mellitus without complications
CPT/HCPCS: 36416; 66984; 82948; A9270; V2632